=== PATIENT | male | born 1965 | race Caucasian/White ===

== ENCOUNTER 2019-12-26 14:59 | Day surgery (SDC) | payer OTHER ==
[~2019-12-26 14:59] MED LIST: Bupivacaine PF 0.75% SDV 10 ML ONE; CEFAZOLIN 1 GM VIAL ONE; Dexamethasone 20 MG/5 ML VIAL ONE; EPHEDRINE 25 MG/5 ML SYRINGE ONE; Enoxaparin Sodium 30 MG/0.3 ML SYRINGE ONE; Lidocaine 1% PF 5 ML VIAL ONE; Lidocaine 4% PF 5 ML AMP ONE; Maxitrol 0.1% Opth Oint 3.5 GM TUBE ONE; Ondansetron PF 4 MG/2 ML Vial ONE; PHENYLEPHRINE-NS 100 MCG/ML 10 ML SYRINGE ONE; PROPOFOL 200 MG/20 ML VIAL ONE; Triamcinolone 40 MG/ML VIAL ONE
[2019-12-26] MEDS ORDERED: Phenylephrine 2.5% Ophth Soln 5 ML BOT FS SCH (15:15)
[2019-12-26] MEDS ORDERED: Cyclopentolate 1% Opth Drop 2 ML BOT FS SCH (15:15)
[2019-12-26] MEDS ORDERED: Fluorouracil 100 MG, Enoxaparin Sodium 25 MG, EPINEPHrine 0.3 MG in Ophthalmic Irrigati... IRR SCH (15:15)
[2019-12-26] MEDS ORDERED: Phenylephrine 2.5% Ophth Soln 5 ML BOT ONE (15:42)
[2019-12-26] MEDS ORDERED: Cyclopentolate 1% Opth Drop 2 ML BOT ONE (15:42)
[2019-12-26] MEDS ORDERED: Fentanyl 100 MCG/2 ML VIAL ONE (19:43)
[2019-12-26] MEDS ORDERED: Midazolam HCl 2 mg/2 ml Vial ONE (19:43)
--- NOTE | 2019-12-28 14:57 | OP ---
DATE OF PROCEDURE: 12/26/2019 PREOPERATIVE DIAGNOSIS: Rhegmatogenous retinal detachment, left eye. POSTOPERATIVE DIAGNOSIS: Rhegmatogenous retinal detachment, left eye. PROCEDURES PERFORMED: Pars plana vitrectomy and retinal detachment repair of the left eye. ANESTHESIA: General endotracheal anesthesia. DESCRIPTION OF PROCEDURE: The patient was identified in the preoperative holding area. Appropriate informed consent for the planned surgical procedure on the left eye had been obtained. The patient was transported to the operative suite. Appropriate cardiopulmonary monitoring established. Local anesthesia obtained using retrobulbar and modified Van Lint lid block and general endotracheal anesthesia was initiated prior to that. The patient was prepped and draped in usual sterile manner for ophthalmic surgery on the left eye. Lid speculum was placed in the left eye. A 25-gauge trocar was placed in the conjunctiva and sclera superotemporally, infratemporally, and supranasally. Infusion line was placed inferotemporally. Light pipe vitreous cutter inserted to the eye. Core vitrectomy was performed. Special attention was placed to the superior and temporal retina, which were detached. Vitreous was trimmed back 360 degrees with wide field viewing system. Posterior drained retinotomy was created and complete air-fluid exchange was performed, 360 laser was placed using Endolaser delivery device. A 28% sulfur hexafluoride gas was infused into the eye. Trocars were removed and the superior nasal and superior sclerotomy were suture closed with 6-0 plain gut suture. Retrobulbar Kenalog and subconjunctival Ancef were placed. Antibiotic ointment was placed. The eye was patched and shielded. The patient was taken to postop recovery unit in good condition, having suffered no immediate perioperative complications. The patient was instructed to keep patch shield on, avoid lifting or bending, position left side down. Followup appointment with Dr. Beltran. Job ID: [id number]
== END 2019-12-26 22:39 | disposition home or self-care (01) ==
LOC: SDC 14:59
PROVIDERS: ATTEND Ophthalmology Retina Specialist
PROC: 08T53ZZ Resection of Left Vitreous, Percutaneous Approach (ICD-10-PCS; principal; 2019-12-26)
DX: H33.002 Unspecified retinal detachment with retinal break, left eye (principal)
CPT/HCPCS: 36416; 67025; J0171; J0690; J1100; J1650; J2001; J2250; J2405; J2704; J3010; J3301; J3490; J9190